=== PATIENT | male | born 1985 | race African-American/Black ===

== ENCOUNTER 2017-06-24 21:36 | Emergency (ER) | payer SELFPAY ==
[~2017-06-24] VITALS: Ht 177.8 cm; Wt 74.8 kg
--- NOTE | 2017-06-24 22:32 | NUR ---
PT C/O MOUTH ABSCESS X 1 WEEK
[2017-06-24] MEDS ORDERED: PENICILLIN V POTASSIUM 500 MG TABLET PO ONE ×2 (22:36→23:00)
[2017-06-24] MEDS ORDERED: LIDOCAINE 2% 20 ML MDV TP ONE (23:00)
[2017-06-24] MEDS ORDERED: LIDOCAINE 2% 50 ML MDV IJ ONE (23:12)
--- NOTE | 2017-06-24 23:15 | NUR ---
ASSISTED DR. GEIGER WITH I & D OF ORAL ABCESS ALONG THE BOTTOM GUMLINE. SUCTIONING DONE.
--- NOTE | 2017-06-24 23:20 | NUR ---
REPORT REC'D FROM MALORIE MIRANDA FOR [facility].
[2017-06-24] MEDS ORDERED: HYDROCODONE/APAP 5/325MG 1 EACH TABLET PO ONE (23:30)
--- NOTE | 2017-06-24 23:50 | NUR ---
Patient discharged to home in stable condition. Written and verbal after care instructions given. Patient verbalizes understanding of instruction AND RX. PT REC'D A LIST OF DENTAL OFFICES FOR UNINSURED. VSS. PT AMBULATED OUT WITH A STEADY GAIT.
[2017-06-24 23:53] VITALS: BP 119/76
== END 2017-06-24 23:53 | disposition home or self-care (01) ==
LOC: ER 21:39
DX: K04.7 Periapical abscess without sinus (principal); F17.200 Nicotine dependence, unspecified, uncomplicated
CPT/HCPCS: A6402; J3490; Z7610